=== PATIENT | male | born 1935 | race Caucasian/White ===

== ENCOUNTER 2016-06-23 12:06 | Inpatient (IN) | payer MEDICARE, OTHER ==
[~2016-06-23] VITALS: Ht 172.7 cm; Wt 83.9 kg
[~2016-06-23 12:06] MED LIST: ASPIRIN81 M1 PO; CETIRIZINE10 MG PO; COREG12.5 M1 PO; COREG6.25 MG PO; DOXYCYCLINE100 M3 PO; DOXYCYCLINE100 MG PO; FUROSEMIDE40 MG PO; LASIX20 MG PO; LASIX40 MG PO; NEURONTIN300 MG PO; PREDNISONE10 MG PO
[2016-06-23 12:10] VITALS: BP 196/105
[2016-06-23 12:39] LABS: BASO # 0.1 10*3/uL (0.0-0.1); BASO % 0.6 % (0.0-1.0); EOS # 0.3 10*3/uL (0.0-0.4); EOS % 4.3 % (1.0-4.0); HEMATOCRIT 40.7 % (42.0-52.0); HEMOGLOBIN 12.7 g/dl (14.0-18.0); LYMPH # 2.5 10*3/uL (1.3-4.4); MEAN CELL VOLUME 84.1 fl (80.0-94.0); MEAN CORPUSCULAR HGB 26.2 pg (27.0-31.0); MEAN CORPUSCULAR HGB CONC 31.2 g/dl (33.0-37.0); MEAN PLATELET VOLUME 10.5 fl (9.6-12.3); MONO # 0.7 10*3/uL (0.1-1.0); MONO % 9.4 % (3.0-9.0); NEUT # 4.2 10*3/uL (2.3-7.9); NEUT % 53.4 % (47.0-73.0); PLATELET COUNT AUTOMATED 220 10*3/uL (130-400); RED BLOOD COUNT 4.84 10*6/uL (4.50-5.90); RED CELL DISTRI WIDTH 15.5 % (0-14.5); WHITE BLOOD COUNT 7.8 10*3/uL (4.8-10.8)
[2016-06-23 12:55] VITALS: BP 174/80
[2016-06-23 12:57] LABS: ALBUMIN 3.9 gm/dl (3.1-4.5); ALKALINE PHOSPHATASE 163 U/L (45-117); BILIRUBIN, TOTAL 2.5 mg/dl (0.2-1.0); BUN 15 mg/dl (7-24); CARBON DIOXIDE 29 mmol/L (21-32); CHLORIDE 107 mmol/L (98-107); EST GLOM FILT AFRICAN AMERICAN > 60 ml/min; GLUCOSE 144 mg/dL (65-99); POTASSIUM 4.3 mmol/L (3.5-5.1); SGOT/AST 13 IU/L (3-35); SGPT/ALT 20 U/L (12-78); SODIUM 140 mmol/L (136-145); TOTAL PROTEIN 7.4 gm/dL (6.4-8.2)
[2016-06-23 12:58] LABS: TROPONIN I < 0.015 ng/ml (<0.045)
[2016-06-23 13:54] VITALS: BP 166/67
[2016-06-23 16:15] VITALS: BP 162/80
[2016-06-23 16:20] VITALS: BP 160/80
[2016-06-23] MEDS ORDERED: LIPITOR20 MG PO (17:41)
[2016-06-23] MEDS ORDERED: ARICEPT10 M1 PO (17:42)
[2016-06-23] MEDS ORDERED: LISINOPRIL5 MG PO (17:42)
[2016-06-23 18:28] LABS: CKMB 1.8 ng/ml (0.5-3.6); TROPONIN I 0.029 ng/ml (<0.045)
[2016-06-23 20:00] VITALS: BP 132/90; BP 140/57
[2016-06-24] VITALS: BP 146/71
[2016-06-24 00:30] LABS: CKMB 1.2 ng/ml (0.5-3.6); TROPONIN I 0.033 ng/ml (<0.045)
[2016-06-24 07:01] LABS: BASO # 0.1 10*3/uL (0.0-0.1); BASO % 0.8 % (0.0-1.0); EOS # 0.4 10*3/uL (0.0-0.4); EOS % 5.8 % (1.0-4.0); HEMATOCRIT 36.1 % (42.0-52.0); HEMOGLOBIN 11.1 g/dl (14.0-18.0); LYMPH % 30.4 % (27.0-41.0); MEAN CELL VOLUME 84.3 fl (80.0-94.0); MEAN CORPUSCULAR HGB 25.9 pg (27.0-31.0); MEAN CORPUSCULAR HGB CONC 30.7 g/dl (33.0-37.0); MEAN PLATELET VOLUME 10.8 fl (9.6-12.3); MONO # 0.7 10*3/uL (0.1-1.0); MONO % 10.9 % (3.0-9.0); NEUT # 3.4 10*3/uL (2.3-7.9); NEUT % 51.9 % (47.0-73.0); PLATELET COUNT AUTOMATED 195 10*3/uL (130-400); RED BLOOD COUNT 4.28 10*6/uL (4.50-5.90); RED CELL DISTRI WIDTH 15.5 % (0-14.5); WHITE BLOOD COUNT 6.5 10*3/uL (4.8-10.8)
[2016-06-24 07:31] LABS: INTERNATIONAL NORM RATIO 1.1 (2.0-3.5)
[2016-06-24 07:33] LABS: ALBUMIN 3.5 gm/dl (3.1-4.5); BILIRUBIN, TOTAL 2.2 mg/dl (0.2-1.0); BUN 14 mg/dl (7-24); CARBON DIOXIDE 28 mmol/L (21-32); CHLORIDE 106 mmol/L (98-107); CHOLESTEROL 112 mg/dL (<200); EST GLOM FILT AFRICAN AMERICAN > 60 ml/min; GLUCOSE 120 mg/dL (65-99); HDL CHOLESTEROL 47 mg/dl (40-60); LDL CHOLESTEROL 53 mg/dL (9-159); MAGNESIUM 2.2 mg/dL (1.5-2.1); PHOSPHOROUS 3.5 mg/dL (2.5-4.9); POTASSIUM 4.1 mmol/L (3.5-5.1); SGOT/AST 14 IU/L (3-35); SGPT/ALT 15 U/L (12-78); SODIUM 143 mmol/L (136-145); TOTAL PROTEIN 6.4 gm/dL (6.4-8.2); TRIGLYCERIDES 62 mg/dl (<150); VLDL CHOLESTEROL 12 mg/dL (6-40)
[2016-06-24 07:38] LABS: CKMB 1.4 ng/ml (0.5-3.6); TROPONIN I 0.026 ng/ml (<0.045)
[2016-06-24 07:40] LABS: ALKALINE PHOSPHATASE 140 U/L (45-117); FREE T4 1.26 ng/dl (0.76-1.46)
[2016-06-24 07:41] LABS: FOLIC ACID 13.7 ng/mL (>5.38)
[2016-06-24 07:59] LABS: HEMOGLOBIN A1c 7.1 % (4.8-5.6)
[2016-06-24 08:00] VITALS: BP 149/86
[2016-06-24 12:00] VITALS: BP 136/76
[2016-06-24] MEDS ORDERED: ASPIRIN CHEWABL81 MG PO (14:58)
== END 2016-06-24 11:06 | disposition home or self-care (01) | DRG 305 ==
LOC: ED 12:06 → EDHOLD 15:09 → 4E 15:09
PROVIDERS: Internal Medicine; Nurse Practitioner Family
DX: I16.0 Hypertensive urgency (principal); J96.10 Chronic respiratory failure, unspecified whether with hypoxia or hypercapnia; I50.32 Chronic diastolic (congestive) heart failure; E11.22 Type 2 diabetes mellitus with diabetic chronic kidney disease; I13.0 Hypertensive heart and chronic kidney disease with heart failure and stage 1 through stage 4 chronic kidney disease, or unspecified chronic kidney disease; J44.9 Chronic obstructive pulmonary disease, unspecified; N18.3 Chronic kidney disease, stage 3 (moderate); I25.10 Atherosclerotic heart disease of native coronary artery without angina pectoris; E78.2 Mixed hyperlipidemia; Z95.5 Presence of coronary angioplasty implant and graft; Z87.891 Personal history of nicotine dependence; Z80.0 Family history of malignant neoplasm of digestive organs; Z82.49 Family history of ischemic heart disease and other diseases of the circulatory system; Z79.899 Other long term (current) drug therapy; Z91.040 Latex allergy status; Z95.1 Presence of aortocoronary bypass graft; T44.1X5A Adverse effect of other parasympathomimetics [cholinergics], initial encounter; R00.1 Bradycardia, unspecified

== ENCOUNTER 2016-09-30 09:51 | Inpatient (IN) | payer MEDICARE, OTHER ==
[~2016-09-30] VITALS: Ht 170.2 cm; Wt 80.3 kg
--- NOTE | ~2016-09-30 | ST ---
[place], [place] EXERCISE STRESS TEST REPORT [id number] UN[facility] #: [id number] ROOM: 510 DOCTOR: SAPPHIRE ORTEZ,GEOVANNY BIRTHDATE: 37 DOS: 10/03/2016 LEXISCAN STRESS TEST REASON FOR TEST: The patient with coronary artery disease and NSTEMI. PHYSICAL EXAMINATION: NECK: Supple. LUNGS: Clear. HEART: Regular rhythm. PROTOCOL: Lexiscan protocol. Maximum heart rate 75, peak blood pressure 142/90. Symptoms: The patient is chest pain free. EKG: Resting EKG shows sinus rhythm with left bundle branch block. Stress EKG showed no ischemia, no arrhythmias. CONCLUSION: Clinically, patient is chest pain free. EKG nonischemic. POST-STRESS COMPLICATIONS: None. The patient received a total of 0.4 mg of Lexiscan. GEOVANNY LEARY MD CM:STRESS:EXERCISE STRESS TEST REPORT [id number] GEOVANNY LEARY MD
--- NOTE | ~2016-09-30 | CON ---
[place], [place] REPORT OF CONSULTATION [id number] UN[facility] #: [id number] ROOM: 510 DOCTOR: DOLORES ORTEZJUSKAZ BIRTHDATE: [birth year] DOS: REQUESTING PHYSICIAN: Dr. Cedillo. REASON FOR CONSULTATION: Chest pain, non-STEMI, aortic stenosis. ASSESSMENT: 1. Current presentation for shortness of breath and dyspnea on exertion for 2 months. 2. Worsening symptoms along with severe chest pain, heaviness, tightness 9/10. 3. Elevated cardiac enzymes consistent with non-STEMI. 4. Evidence of aortic stenosis, most likely in moderate to severe range. 5. Hypertension. 6. Hyperlipidemia. 7. Diabetes. 8. Baseline left bundle-branch block. 9. History of coronary artery disease, reported bypass surgery x3, unknown details (records from [place] will be requested.) 10. Anemia. 11. Significant early family history of heart disease. PLAN: 1. Continue to check cardiac enzymes. 2. Enteric-coated aspirin 81 mg. 3. Lovenox 1 mg/kg for 24 hours. 4. Coreg 12.5 mg 1 tab p.o. b.i.d. 5. Lipitor 80 mg once a day. 6. Echocardiogram. 7. The patient will be transferred for cardiac catheterization on Monday. 8. Early followup in our [facility] within 2-4 weeks as an outpatient. HISTORY AND PHYSICAL: The patient is a pleasant 80-year-old gentleman unknown to our practice, was referred by Dr. Cedillo ____ for evaluation of complaint of chest pain, heaviness, tightness along with shortness of breath, dyspnea on exertion that has been going on for months but got much worse prior to his presentation. The pain is substernal, heavy, tight. It did start slow and progress quickly to 9/10, nonradiating with associated nausea but no vomiting or diaphoresis. The patient felt slightly concerned and finally presented to the Emergency Room. Lab data did confirm the presence of a non-STEMI and cardiology consultation was called in. The patient had been having these episodes off and on for the past 2 months along with cough, shortness of breath, dyspnea on exertion, appears to be like he reached almost [place] Heart Association Class III prior to presentation. He had been having symptomatic palpitation off and on but usually lasting in minutes with no associated dizziness, lightheadedness or near syncope. Sleeps on 1 pillow, apparently with what looks like PND and orthopnea. The patient is relatively a very poor historian. No fever, no chills, no night sweats. Maintaining good appetite, no weight loss. The patient does live on his own, still able to drive and take care of himself. Does not follow a regular exercise program. This is all prior to his current [place], [place] REPORT OF CONSULTATION NAME: ERICA BRAND UNIT #: [id number] ROOM: [facility] DOCTOR: CIARNA BERNAL MD BIRTHDATE: [birth year] presentation. PAST MEDICAL HISTORY: As detailed in my assessment. SOCIAL HISTORY: The patient quit smoking in 1976; currently, there is no tobacco, alcohol or illicit drug abuse. FAMILY HISTORY: The patient's brother had massive myocardial infarction and at age 37. CURRENT MEDICATIONS: Aricept, Lipitor, Lovenox, lisinopril, Lasix, Coreg, aspirin. ALLERGIES: The patient is allergic to LATEX. REVIEW OF SYSTEMS: Currently, the patient denies any headache, diplopia, or blurry vision. No fever, no chills, no night sweats. No abdominal pain, no bright blood per rectum, no tarry stools. No joint pain, no muscular pain. No anxiety, no depression. No polyuria, no polydipsia. No skin rash. Review of all other systems has been negative. PHYSICAL EXAMINATION: GENERAL: The patient is alert, oriented x3, quite pleasant. VITAL SIGNS: Blood pressure 141/67, heart rate 67, respiratory rate of 20, temperature 98.3. HEENT: Extraocular muscles intact. Pupils equal, round, reactive to light. Conjunctivae, no pallor. Throat, no petechiae. NECK: Good carotid upstroke. Significant bruit ____ with no lymphadenopathy, no thyromegaly. HEART: S1, S2 with a systolic ejection murmur at the right upper sternal border. There is no ____ S4 gallop. Holosystolic murmur at the left sternal border. No rub. No sternal heave. CHEST AND BACK: No deformities. LUNGS: Decreased air movement but no peggy wheezing or rales. ABDOMEN: Soft, nontender, present bowel sounds, no masses, no bruits. EXTREMITIES: Lower extremities, there is no significant edema with faint distal pulses. NEUROLOGIC: Grossly nonfocal. SKIN: No significant rash. EKG is left bundle-branch block with occasional PVCs. LABORATORY DATA: White count 7.6, hemoglobin 8.4. BUN 38, creatinine 1.5, EGFR 43. Magnesium 2.2. Normal liver function tests except for alk phos at 120. Total cholesterol 124, LDL 71, HDL 32. Troponin initially 0.53, next 1.7, next 2.5, next 2.4. CK-MB is 5.6, then 9.0. [place], [place] REPORT OF CONSULTATION NAME: ERICA BRAND UNIT #: [id number] ROOM: [facility] DOCTOR: CIARAN BERNAL MD BIRTHDATE: [birth year] CIARAN BERNAL MD CM:CONSTR:REPORT OF CONSULTATION 1142 10/02/16 0601 interface
--- NOTE | ~2016-09-30 | PR ---
[place], [place] PROGRESS NOTE NAME: ERICA BRAND [facility] #: [id number] UNIT #: [id number] ROOM: 510 DOCTOR: SAPPHIRE ORTEZ,GEOVANNY BIRTHDATE: [birth year] DOS: 10/03/2016 REASON FOR VISIT: The patient NSTEMI and known coronary artery disease. The patient denies any chest pain or shortness of breath. No PND, no orthopnea. No edema. REVIEW OF SYSTEMS: Review of the 8 systems negative except as mentioned above. RHYTHM STRIPS: The patient in sinus rhythm. PHYSICAL EXAMINATION: VITAL SIGNS: Blood pressure noted and stable. GENERAL: Alert, comfortable, no acute distress. HEAD AND NECK: Pupils are round, equal. No jaundice. Tongue was moist and pharynx was clear. NECK: Supple, no distended neck veins, no carotid bruit. CHEST: Symmetrical, nontender. LUNGS: Clear to auscultation bilaterally. HEART: Regular rhythm, no S3, grade 2/6 systolic murmur. No palpable thrills. ABDOMEN: Benign, nontender. Bowel sounds normal. No palpable masses. EXTREMITIES: Showed no edema. Distal pulses are palpable. SKIN: Warm and dry. No cyanosis, no clubbing. RECTAL: Deferred. GENITOURINARY: Deferred. IMPRESSION: 1. Non-ST elevation myocardial infarction. 2. History of coronary artery disease, status post bypass in 1986, redo bypass in 1993, redo bypass in 2000; cardiac catheterization in 10/2013 showed a patent 3 graft and eagle multivessel disease. 3. LV dysfunction, EF of 35% by echo in 2016. 4. Chronic kidney disease. 5. Peripheral vascular disease status post abdominal aortic aneurysm stent, graft repair in 2016. 6. Heart murmur, possible mitral regurgitation. 7. Chronic block. 8. Chronic systolic heart failure. 9. Anemia. RECOMMENDATIONS: 1. Continue current medications. 2. I would believe he will be a high risk for any cardiac interventional procedures due to his multiple comorbidities including chronic kidney disease as well as redo bypass and anemia. 3. Lexiscan stress test today to see any significant ischemia. 4. Check 2D echo for LV function and valvular function. 5. stress test and echo, we will discuss about further interventional procedures. 6. There is no family at bedside and I had a long discussion with the patient [place], [place] PROGRESS NOTE NAME: ERICA BRAND UNIT #: [id number] ROOM: 510 DOCTOR: SAPPHIRE ORTEZ,GEOVANNY BIRTHDATE: [birth year] regarding risks and complications of cardiac catheterization, especially acute renal failure due to contrast nephropathy and possible need for hemodialysis. 7. Continue current cardiac medications. GEOVANNY LEARY MD CM:PNTRANS [phone] GEOVANNY LEARY MD 10/04/16 0155 interface
--- NOTE | ~2016-09-30 | PR ---
[place], [place] PROGRESS NOTE NAME: ERICA BRAND [facility] #: [id number] UNIT #: [id number] ROOM: 510 DOCTOR: SAPPHIRE ORTEZ,GEOVANNY BIRTHDATE: [birth year] DOS: 10/04/2016 REASON FOR VISIT: NSTEMI and cardiomyopathy. SUBJECTIVE: The patient is feeling better. Denies any chest pain, shortness of breath. No palpitations, no dizziness, no syncope, no orthopnea, no genitourinary or gastrointestinal symptoms. No fever or chills. REVIEW OF SYSTEMS: Review of the 8 systems negative except as mentioned above. RHYTHM STRIPS: The patient in sinus rhythm. PHYSICAL EXAMINATION: VITAL SIGNS: Blood pressure 104/82, pulse 57, respiratory rate is 18. GENERAL: Alert, comfortable, in no acute distress. HEENT: Pupils are round and equal. No jaundice. NECK: Supple, no distended neck veins, no carotid bruit. CHEST: Symmetrical, nontender. LUNGS: Clear to auscultation bilaterally. HEART: Regular rhythm, no S3, grade 2/6 systolic murmur. ABDOMEN: Benign, nontender. Bowel sounds normal. EXTREMITIES: Showed no edema. Distal pulses are palpable. SKIN: Warm and dry. No cyanosis, no clubbing. NEUROLOGIC: The patient is alert, oriented. No focal neurologic deficit. RECTAL: Deferred. GENITOURINARY: Deferred. MEDICATIONS AND ALLERGIES: Reviewed. IMPRESSION: 1. Non-ST elevation myocardial infarction, clinically asymptomatic, nonischemic stress test 10/03/2016. 2. Coronary artery disease, status post bypass in 1986, redo bypass in 1993, redo bypass in 2000, cardiac catheterization in 2013 showed patent grafts, nonischemic stress test 10/03/2016. 3. Ischemic cardiomyopathy, EF of 35% by echo in 2015, 35% by stress test 10/03/2016, echo is pending. On beta gabriele, JANNET inhibitors and diuretics. 4. Valvular heart disease. Echo pending. 5. Peripheral vascular disease status post abdominal aortic aneurysm stent repair in 2015. RECOMMENDATIONS: 1. The patient is on maximal tolerable medical therapy including aspirin, beta blockers, JANNET inhibitors and statins. 2. Check 2D echo due to his ischemic cardiomyopathy. Due to risk of sudden cardiac , LifeVest was recommended and he is agreeable. 3. Possible discharge later today and up titrate his medications as his blood pressure can tolerate and repeat his LV function in 3-6 months on optimal medical therapy. If EF is less than 35, then he will need ICD. 4. Followup as in 1-2 weeks after discharge. [place], [place] PROGRESS NOTE NAME: ERICA BRAND UNIT #: [id number] ROOM: [facility] DOCTOR: SAPPHIRE ORTEZ,GEOVANNY BIRTHDATE: [birth year] GEOVANNY LEARY MD CM:PNTRANS [id number] GEOVANNY LEARY MD 10/05/16 0036 interface
--- NOTE | ~2016-09-30 | PR ---
[place], [place] PROGRESS NOTE NAME: ERICA BRAND [facility] #: [id number] UNIT #: [id number] ROOM: 510 DOCTOR: CIARAN BERNAL MD BIRTHDATE: [birth year] DOS: SUBJECTIVE: The patient is sitting up in bed, does not appear in distress, denies any further episode of chest pain. No symptomatic palpitation, no dizziness, no lightheadedness, no syncope. OBJECTIVE: VITAL SIGNS: Blood pressure 104/71, heart rate 71, respiratory rate 14, temperature 98.8, (between two records, heart rate during the night dipped down to 47). NECK: Good upstroke, no bruit. HEART: S1, S2 with no rub. LUNGS: Clear to auscultation. Slight decreased air movement. LOWER EXTREMITIES: There is no edema. LABORATORY DATA: White count 8.4, hemoglobin 10.5, potassium 3.9, creatinine 1.5, BUN 37, total bilirubin 4.1. Troponin initially 0.5, then 1.7, then 2.5, then 2.4. CK-MB 5.6 and 9.0. CPK was 112. ASSESSMENT AND PLAN: Presentation with shortness of breath and dyspnea on exertion along with a complaint of chest pain, heaviness, and tightness. The patient showing elevated cardiac enzymes, including troponin and CK-MB. The patient has the classic symptoms that have been going on for a while now. He has a very high risk profile along with a left bundle branch block and multiple bypass surgeries. The patient is also showing a systolic ejection murmur along with a carotid bruit on physical exam. Our plan right now is to maximize his medication, obtain an echocardiogram in the a.m. regarding his aortic valve, and consider a cardiac catheterization at ____ in [place]. This was all explained to the patient in detail with the risks, benefits, and alternatives and he is in all agreement. At this stage, the patient's vital signs do not allow any further titration of medication. Upon discharge, the patient will follow up in our clinic here in [place] within 2-4 weeks as an outpatient. [place], [place] PROGRESS NOTE NAME: ERICA BRAND UNIT #: [id number] ROOM: 510 DOCTOR: CIARAN BERNAL MDDATE: [birth year] CIARAN BRENAL MD CM:CONNIE [phone] CIARAN BERNAL MD 10/03/16 0236 interface
[~2016-09-30 09:51] MED LIST changes: +ARICEPT10 M1 PO; +ASPIRIN CHEWABL81 MG PO; +LIPITOR20 MG PO; +LISINOPRIL5 MG PO
[2016-09-30 10:13] VITALS: BP 150/85
[2016-09-30 10:27] VITALS: BP 142/93
[2016-09-30 10:41] LABS: BASO % 0.4 % (0.0-1.0); EOS # 0.1 10*3/uL (0.0-0.4); EOS % 0.9 % (1.0-4.0); HEMATOCRIT 29.3 % (42.0-52.0); HEMOGLOBIN 9.1 g/dl (14.0-18.0); LYMPH # 2.1 10*3/uL (1.3-4.4); LYMPH % 23.5 % (27.0-41.0); MEAN CELL VOLUME 80.1 fl (80.0-94.0); MEAN CORPUSCULAR HGB 24.9 pg (27.0-31.0); MEAN CORPUSCULAR HGB CONC 31.1 g/dl (33.0-37.0); MONO % 10.8 % (3.0-9.0); NEUT # 5.8 10*3/uL (2.3-7.9); PLATELET COUNT AUTOMATED 244 10*3/uL (130-400); RED BLOOD COUNT 3.66 10*6/uL (4.50-5.90); RED CELL DISTRI WIDTH 17.2 % (0-14.5); WHITE BLOOD COUNT 9.1 10*3/uL (4.8-10.8)
[2016-09-30 10:49] LABS: INTERNATIONAL NORM RATIO 1.2 (2.0-3.5); PROTHROMBIN TIME 12.3 SECONDS (9.0-12.4)
[2016-09-30 10:55] LABS: ALBUMIN 3.9 gm/dl (3.1-4.5); C-REACTIVE PROTEIN 0.59 MG/DL (0-0.3); MAGNESIUM 2.2 mg/dL (1.5-2.1); POTASSIUM 4.4 mmol/L (3.5-5.1); TOTAL PROTEIN 7.2 gm/dL (6.4-8.2)
[2016-09-30 11:00] LABS: CKMB 5.6 ng/ml (0.5-3.6); TROPONIN I 0.538 ng/ml (<0.045)
[2016-09-30 11:25] VITALS: BP 142/83
[2016-09-30 12:38] VITALS: BP 142/76
[2016-09-30] MEDS ORDERED: LASIX20 MG PO (13:29)
[2016-09-30] MEDS ORDERED: IRON325 M1 PO (13:29)
[2016-09-30] MEDS ORDERED: COREG12.5 M1 PO (13:30)
[2016-09-30] MEDS ORDERED: ARICEPT10 M1 PO (13:30)
[2016-09-30 16:00] VITALS: BP 100/54
[2016-09-30 20:00] VITALS: BP 123/73
[2016-10-01] VITALS (14 sets, daily range): BP systolic 93–141; BP diastolic 37–69
[2016-10-01 06:20] LABS: BASO % 0.5 % (0.0-1.0); EOS # 0.2 10*3/uL (0.0-0.4); EOS % 2.9 % (1.0-4.0); HEMATOCRIT 27.3 % (42.0-52.0); HEMOGLOBIN 8.4 g/dl (14.0-18.0); LYMPH # 2.5 10*3/uL (1.3-4.4); LYMPH % 33.2 % (27.0-41.0); MEAN CELL VOLUME 80.1 fl (80.0-94.0); MEAN CORPUSCULAR HGB 24.6 pg (27.0-31.0); MEAN CORPUSCULAR HGB CONC 30.8 g/dl (33.0-37.0); MEAN PLATELET VOLUME 10.4 fl (9.6-12.3); MONO % 12.6 % (3.0-9.0); NEUT # 3.8 10*3/uL (2.3-7.9); NEUT % 50.5 % (47.0-73.0); PLATELET COUNT AUTOMATED 210 10*3/uL (130-400); RED BLOOD COUNT 3.41 10*6/uL (4.50-5.90); RED CELL DISTRI WIDTH 17.4 % (0-14.5); WHITE BLOOD COUNT 7.6 10*3/uL (4.8-10.8)
[2016-10-01 06:48] LABS: ALBUMIN 3.6 gm/dl (3.1-4.5); MAGNESIUM 2.2 mg/dL (1.5-2.1); PHOSPHOROUS 3.6 mg/dL (2.5-4.9); TOTAL PROTEIN 6.4 gm/dL (6.4-8.2)
[2016-10-02 06:07] LABS: BASO # 0.1 10*3/uL (0.0-0.1); BASO % 0.6 % (0.0-1.0); EOS # 0.1 10*3/uL (0.0-0.4); EOS % 1.3 % (1.0-4.0); HEMATOCRIT 32.1 % (42.0-52.0); LYMPH # 1.5 10*3/uL (1.3-4.4); LYMPH % 18.4 % (27.0-41.0); MEAN CELL VOLUME 80.3 fl (80.0-94.0); MEAN CORPUSCULAR HGB 26.3 pg (27.0-31.0); MEAN CORPUSCULAR HGB CONC 32.7 g/dl (33.0-37.0); MEAN PLATELET VOLUME 10.6 fl (9.6-12.3); MONO % 11.9 % (3.0-9.0); NEUT # 5.6 10*3/uL (2.3-7.9); NEUT % 67.4 % (47.0-73.0); NUCLEATED RED BLOOD CELL 0.2 % (0.0-0.0); PLATELET COUNT AUTOMATED 214 10*3/uL (130-400); RED CELL DISTRI WIDTH 17.2 % (0-14.5); WHITE BLOOD COUNT 8.4 10*3/uL (4.8-10.8)
[2016-10-02 06:25] LABS: ALBUMIN 3.3 gm/dl (3.1-4.5); BILIRUBIN, TOTAL 4.1 mg/dl (0.2-1.0); POTASSIUM 3.9 mmol/L (3.5-5.1)
[2016-10-02 06:50] LABS: HEMOGLOBIN 10.5 g/dl (14.0-18.0)
[2016-10-02 08:00] VITALS: BP 104/71
[2016-10-02 12:00] VITALS: BP 110/78
[2016-10-02 16:00] VITALS: BP 119/70
[2016-10-02 20:00] VITALS: BP 121/57
[2016-10-03] VITALS: BP 107/66
[2016-10-03 06:00] VITALS: BP 107/64
[2016-10-03 07:20] LABS: BASO # 0.1 10*3/uL (0.0-0.1); BASO % 0.7 % (0.0-1.0); EOS # 0.2 10*3/uL (0.0-0.4); EOS % 2.7 % (1.0-4.0); HEMATOCRIT 34.5 % (42.0-52.0); HEMOGLOBIN 11.2 g/dl (14.0-18.0); LYMPH % 27.5 % (27.0-41.0); MEAN CORPUSCULAR HGB 26.3 pg (27.0-31.0); MEAN CORPUSCULAR HGB CONC 32.5 g/dl (33.0-37.0); MEAN PLATELET VOLUME 10.1 fl (9.6-12.3); MONO % 12.9 % (3.0-9.0); NEUT # 4.1 10*3/uL (2.3-7.9); NEUT % 55.9 % (47.0-73.0); PLATELET COUNT AUTOMATED 227 10*3/uL (130-400); RED BLOOD COUNT 4.26 10*6/uL (4.50-5.90); RED CELL DISTRI WIDTH 17.4 % (0-14.5); WHITE BLOOD COUNT 7.3 10*3/uL (4.8-10.8)
[2016-10-03 07:32] LABS: POTASSIUM 3.9 mmol/L (3.5-5.1)
[2016-10-03 08:00] VITALS: BP 115/65
[2016-10-03 16:00] VITALS: BP 115/57
[2016-10-03 20:00] VITALS: BP 93/64
[2016-10-04] VITALS: BP 96/61
[2016-10-04 08:00] VITALS: BP 104/82
[2016-10-04 10:04] LABS: BASO # 0.1 10*3/uL (0.0-0.1); BASO % 0.8 % (0.0-1.0); EOS # 0.2 10*3/uL (0.0-0.4); EOS % 2.8 % (1.0-4.0); HEMATOCRIT 35.2 % (42.0-52.0); HEMOGLOBIN 11.1 g/dl (14.0-18.0); LYMPH # 1.8 10*3/uL (1.3-4.4); LYMPH % 24.6 % (27.0-41.0); MEAN CELL VOLUME 82.1 fl (80.0-94.0); MEAN CORPUSCULAR HGB 25.9 pg (27.0-31.0); MEAN CORPUSCULAR HGB CONC 31.5 g/dl (33.0-37.0); MEAN PLATELET VOLUME 9.8 fl (9.6-12.3); MONO % 13.5 % (3.0-9.0); NEUT # 4.4 10*3/uL (2.3-7.9); NEUT % 58.2 % (47.0-73.0); PLATELET COUNT AUTOMATED 243 10*3/uL (130-400); RED BLOOD COUNT 4.29 10*6/uL (4.50-5.90); RED CELL DISTRI WIDTH 17.7 % (0-14.5); WHITE BLOOD COUNT 7.5 10*3/uL (4.8-10.8)
[2016-10-04 12:00] VITALS: BP 117/64
[2016-10-04 16:00] VITALS: BP 106/59
[2016-10-04] MEDS ORDERED: CARVEDILOL6.25 MG PO (18:21)
[2016-10-04 20:00] VITALS: BP 112/64
[2016-10-05] VITALS: BP 112/52
[2016-10-05 08:00] VITALS: BP 130/63
== END 2016-10-05 11:36 | disposition home health service (06) | DRG 280 ==
LOC: ED 09:51 → EDHOLD 11:18 → ED 11:18 → 5E 12:14 → EDHOLD 12:14 → 5E 12:32
PROVIDERS: Emergency Medicine; Family Medicine; Internal Medicine; Internal Medicine Nephrology; Registered Nurse
PROC: 30233N1 Transfusion of Nonautologous Red Blood Cells into Peripheral Vein, Percutaneous Approach (ICD-10-PCS; principal; 2016-10-03)
PROC: 3E073KZ Introduction of Other Diagnostic Substance into Coronary Artery, Percutaneous Approach (ICD-10-PCS; principal; 2016-10-03)
PROC: 4A02XM4 Measurement of Cardiac Total Activity, External Approach (ICD-10-PCS; principal; 2016-10-03)
DX: I21.4 Non-ST elevation (NSTEMI) myocardial infarction (principal); I50.33 Acute on chronic diastolic (congestive) heart failure; E11.22 Type 2 diabetes mellitus with diabetic chronic kidney disease; E11.51 Type 2 diabetes mellitus with diabetic peripheral angiopathy without gangrene; I13.0 Hypertensive heart and chronic kidney disease with heart failure and stage 1 through stage 4 chronic kidney disease, or unspecified chronic kidney disease; E87.1 Hypo-osmolality and hyponatremia; I50.22 Chronic systolic (congestive) heart failure; I25.10 Atherosclerotic heart disease of native coronary artery without angina pectoris; N18.3 Chronic kidney disease, stage 3 (moderate); J44.9 Chronic obstructive pulmonary disease, unspecified; I24.9 Acute ischemic heart disease, unspecified; E78.2 Mixed hyperlipidemia; I44.7 Left bundle-branch block, unspecified; D64.9 Anemia, unspecified; Z66 Do not resuscitate; Z51.5 Encounter for palliative care; I25.5 Ischemic cardiomyopathy; E80.6 Other disorders of bilirubin metabolism; I35.0 Nonrheumatic aortic (valve) stenosis; I34.0 Nonrheumatic mitral (valve) insufficiency; Z79.899 Other long term (current) drug therapy; Z95.1 Presence of aortocoronary bypass graft; Z87.891 Personal history of nicotine dependence; Z80.0 Family history of malignant neoplasm of digestive organs; Z91.040 Latex allergy status; Z82.49 Family history of ischemic heart disease and other diseases of the circulatory system

== ENCOUNTER 2016-12-05 15:04 | Inpatient (IN) | payer MEDICARE, OTHER ==
[~2016-12-05] VITALS: Ht 172.7 cm; Wt 77.6 kg
[~2016-12-05 15:04] MED LIST changes: +CARVEDILOL6.25 MG PO; +IRON325 M1 PO
[2016-12-05 15:30] LABS: BASO # 0.1 10*3/uL (0.0-0.1); BASO % 0.6 % (0.0-1.0); EOS # 0.4 10*3/uL (0.0-0.4); EOS % 4.8 % (1.0-4.0); HEMATOCRIT 43.7 % (42.0-52.0); HEMOGLOBIN 14.3 g/dl (14.0-18.0); LYMPH # 3.4 10*3/uL (1.3-4.4); LYMPH % 39.5 % (27.0-41.0); MEAN CELL VOLUME 85.5 fl (80.0-94.0); MEAN CORPUSCULAR HGB CONC 32.7 g/dl (33.0-37.0); MEAN PLATELET VOLUME 9.8 fl (9.6-12.3); MONO # 0.9 10*3/uL (0.1-1.0); MONO % 10.7 % (3.0-9.0); NEUT # 3.8 10*3/uL (2.3-7.9); NEUT % 44.1 % (47.0-73.0); PLATELET COUNT AUTOMATED 196 10*3/uL (130-400); RED BLOOD COUNT 5.11 10*6/uL (4.50-5.90); RED CELL DISTRI WIDTH 17.7 % (0-14.5); WHITE BLOOD COUNT 8.6 10*3/uL (4.8-10.8)
[2016-12-05 15:33] VITALS: BP 144/68
[2016-12-05 15:37] LABS: ACT PARTIAL THROMBO TIME 25.6 SECONDS (20.8-31.5)
--- NOTE | 2016-12-05 15:45 | NUR ---
PT CURRENTLY PAIN FREE AT THIS TIME. DR. BAUMAN AT BEDSIDE WHEN PT VERBALIZES THIS. VERBAL ORDER TO CANCEL NITRO ADMIN BY DR. BAUMAN.
[2016-12-05 15:46] VITALS: BP 146/60
[2016-12-05 15:47] LABS: ALBUMIN 3.8 gm/dl (3.1-4.5); CREATININE 1.55 mg/dL (0.70-1.30); MAGNESIUM 2.2 mg/dL (1.5-2.1); TOTAL PROTEIN 7.3 gm/dL (6.4-8.2)
[2016-12-05 15:48] LABS: TROPONIN I 0.031 ng/ml (<0.045)
--- NOTE | 2016-12-05 17:29 | NUR ---
PT CONTINUES TO DENY ANY CHEST PAIN. RESTING QUEITLY. NO DISTRESS NOTED.
[2016-12-05 17:30] VITALS: BP 114/72
--- NOTE | 2016-12-05 17:30 | NUR ---
PT HEART RATE CONTINUES IN THE 40-50'S. PT IS ASYMPTOMATIC.
[2016-12-05 17:50] VITALS: BP 130/70
--- NOTE | 2016-12-05 17:50 | NUR ---
A 81, admitted to , under the services of POLINA Roland DO with a diagnosis of CHEST PAIN. Chief complaint is CHEST PAIN. Patient arrived via wheel chair from ER. Monitor applied. Initial assessment completed. Vital signs taken and recorded. POLINA ROLAND DO notified of admission to the unit. Orders received. See assessment for past medical history, medications and allergies. Patient and/or family oriented to unit. [facility] visitation policy reviewed. Clothing/patient valuable form completed. JULIENNE MATHEW
--- NOTE | 2016-12-05 18:20 | NUR ---
NOTIFIED DR PETERSON OF NEW CONSULT FOR EXISTING PATIENT FOR CHEST PAIN.NO NEW ORDERS.
--- NOTE | 2016-12-05 18:30 | NUR ---
NOTIFIED DR PETERSON OF CRITICAL TROPONIN, 0.080. NO NEW ORDERS.
--- NOTE | 2016-12-05 19:14 | NUR ---
COMPLETED ADMISSION BUT DID NOT GET TO FLU SHOT. PASSED ALONG TO AUTOMOBILE BODY REPAIRER RN IN REPORT.
[2016-12-05 20:00] VITALS: BP 160/71
--- NOTE | 2016-12-05 21:27 | NUR ---
DR PETERSON ANSWERING SERVICE CONTACTED FOR CRITICAL TROPONIN
--- NOTE | 2016-12-05 21:32 | NUR ---
DR PETERSON AWARE OF TROPONIN 0.132, AND HEART RATE GOING FROM 40'S TO 120'S, NOW TO THE 90'S. STATES TO KEEP AN EYE ON HIM, KEEP HIM NPO, AND HE WILL FIGURE OUT WHAT TO DO IN THE MORNING
--- NOTE | 2016-12-05 23:28 | NUR ---
PATIENT RESTING IN BED. DENIES CHEST PAIN OR PRESSURE. NO NEEDS MADE. BED IN LOWEST POSITION, CALL LIGHTIN REACH
[2016-12-06] VITALS: BP 124/70
[2016-12-06 04:00] VITALS: BP 136/62
[2016-12-06 07:10] LABS: ACT PARTIAL THROMBO TIME 25.8 SECONDS (20.8-31.5); INTERNATIONAL NORM RATIO 1.1 (2.0-3.5)
[2016-12-06 07:13] LABS: ALBUMIN 3.4 gm/dl (3.1-4.5); ALKALINE PHOSPHATASE 164 U/L (45-117); BUN 26 mg/dl (7-24); CHLORIDE 107 mmol/L (98-107); CHOLESTEROL 123 mg/dL (<200); HDL CHOLESTEROL 43 mg/dl (40-60); LDL CHOLESTEROL 57 mg/dL (9-159); MAGNESIUM 2.1 mg/dL (1.5-2.1); PHOSPHOROUS 2.9 mg/dL (2.5-4.9); POTASSIUM 4.5 mmol/L (3.5-5.1); SGOT/AST 22 IU/L (3-35); SODIUM 140 mmol/L (136-145); TOTAL PROTEIN 6.6 gm/dL (6.4-8.2); TRIGLYCERIDES 113 mg/dl (<150); VLDL CHOLESTEROL 23 mg/dL (6-40)
[2016-12-06 07:18] LABS: CREATININE 1.29 mg/dL (0.70-1.30); SGPT/ALT 26 U/L (12-78)
[2016-12-06 08:00] VITALS: BP 138/66
--- NOTE | 2016-12-06 08:38 | NUR ---
PATIENT RESTING WITH NO DISTRESS.
--- NOTE | 2016-12-06 09:00 | NUR ---
Finish Cleaner in to talk to patient. Patient states lives at home with alone. There are fw steps in the home. Physician: kit murphy Pharmacy: [facility] Home health services: none Patient's level of ADLs: INDEPENDENT Patient has working utilities: all working DME: none Follow-up physician's appointment after d/c: will be made by hospitalist nurse director upon discharge Does patient want to access PORTAL?: no Discharge plan discussed with patient, patient lives at home alone, states he gets around fine, drives, patient states he will be going back home and denies any home needs. RAQUEL DENNIS
--- NOTE | 2016-12-06 10:03 | NUR ---
PATIENT STATES HE DOES NOT WISH TO HAVE FLU SHOT.
[2016-12-06 12:00] VITALS: BP 158/98
--- NOTE | 2016-12-06 13:14 | NUR ---
PHYSICAL THERAPY PAtient evaluated on 5, full evaluation to follow. D/C PT after evaluation- no PT skills/needs. PAtient agrees. PAtient is low complexity via chart review, tests and evaluation: [id number]. Thank you for this referral. Ana Estevez ,PT
--- NOTE | 2016-12-06 14:11 | NUR ---
PATIENT RESTING WITH NO DISTRESS.
--- NOTE | 2016-12-06 14:29 | NUR ---
ARTISTS' MODEL NOTIFIED RN THAT PATIENT HAD GONE INTO A FIB. GURDEEP MADRIGAL NOTIFIED AND STRIP PLACED ON THE CHART.
[2016-12-06 16:00] VITALS: BP 112/61
--- NOTE | 2016-12-06 16:15 | NUR ---
ASSUMED CARE OF PATIENT NO CO AT THIS ITME CALL LIGHT IN REACH SEE SHIFT ASSESSMENT
[2016-12-06 20:00] VITALS: BP 100/61
--- NOTE | 2016-12-06 20:18 | NUR ---
PATIENT ASLEEP IN BED AT THIS TIME. RESPIRATIONS EASY. NO S/S OF DISTRESS NOTED. WILL MONITOR. CALL LIGHT IN REACH.
[2016-12-07] VITALS: BP 105/56
[2016-12-07 08:00] VITALS: BP 108/68
[2016-12-07] MEDS ORDERED: IMDUR SA30 MG PO (09:51)
[2016-12-07] MEDS ORDERED: ALDACTONE25 MG PO (09:52)
[2016-12-07 12:00] VITALS: BP 131/51
--- NOTE | 2016-12-07 14:36 | NUR ---
Discharge instructions reviewed with patient. Patient receptive and verbalizes understanding. Follow-up care arranged. Written instructions given to patient. [facility] HOME BY PRIVATE VEHICLE. LAZARO PRIEST
== END 2016-12-07 14:36 | disposition home health service (06) | DRG 281 ==
LOC: ED 15:04 → 5E 15:41 → EDHOLD 15:41 → 5E 15:41
PROVIDERS: Emergency Medicine; Internal Medicine Nephrology; ADMIT Emergency Medicine
DX: I21.4 Non-ST elevation (NSTEMI) myocardial infarction (principal); I50.42 Chronic combined systolic (congestive) and diastolic (congestive) heart failure; E11.22 Type 2 diabetes mellitus with diabetic chronic kidney disease; I13.0 Hypertensive heart and chronic kidney disease with heart failure and stage 1 through stage 4 chronic kidney disease, or unspecified chronic kidney disease; F03.90 Unspecified dementia, unspecified severity, without behavioral disturbance, psychotic disturbance, mood disturbance, and anxiety; I25.810 Atherosclerosis of coronary artery bypass graft(s) without angina pectoris; E83.41 Hypermagnesemia; N18.3 Chronic kidney disease, stage 3 (moderate); E11.65 Type 2 diabetes mellitus with hyperglycemia; I35.0 Nonrheumatic aortic (valve) stenosis; I25.5 Ischemic cardiomyopathy; I44.7 Left bundle-branch block, unspecified; Z66 Do not resuscitate; Z51.5 Encounter for palliative care; E78.2 Mixed hyperlipidemia; E87.8 Other disorders of electrolyte and fluid balance, not elsewhere classified; E66.3 Overweight; D72.821 Monocytosis (symptomatic); J44.9 Chronic obstructive pulmonary disease, unspecified; Z95.1 Presence of aortocoronary bypass graft; Z91.040 Latex allergy status; Z87.891 Personal history of nicotine dependence; I25.2 Old myocardial infarction; Z80.0 Family history of malignant neoplasm of digestive organs; Z79.82 Long term (current) use of aspirin; Z79.899 Other long term (current) drug therapy; Z60.2 Problems related to living alone